=== PATIENT | female | born 1945 | race Caucasian/White ===

== ENCOUNTER 2016-10-24 17:08 | Inpatient (IN) | payer MEDICARE, OTHER ==
[~2016-10-24] VITALS: Ht 172.7 cm; Wt 66.8 kg
[~2016-10-24 17:08] MED LIST: ALEN35TA18 PO; OMEP20CA5 PO
[2016-10-24] MEDS ORDERED: SODIUM CHLORIDE 0.9% 250 ML IV ONE (17:22)
[2016-10-24] MEDS ORDERED: cefTRIAXone 1GM/50ML D5W 50 ML IV ONE (17:30)
[2016-10-24] MEDS ORDERED: SODIUM CHLORIDE 0.9% 1,000 ML IV ONE (17:30)
[2016-10-24] MEDS ORDERED: NITROGLYCERIN 0.4 MG SL TAB SL PRN (17:30)
[2016-10-24] MEDS ORDERED: MORPHINE SULF INJ 2 MG/ML SYRINGE 1ML IV PRN (17:30)
[2016-10-24] MEDS ORDERED: ONDANSETRON HCL 4 MG/2 ML VIAL IV PRN (17:45)
[2016-10-24] MEDS ORDERED: AZITHROMYCIN 500MG/D5W 250ML 250 ML IV ONE (17:45)
[2016-10-24] MEDS ORDERED: ALPRAZolam 0.5 MG TAB PO PRN (17:45)
[2016-10-24] MEDS ORDERED: CITALOPRAM HYDROBR 20 MG TAB PO ONE (18:00)
[2016-10-24] MEDS ORDERED: PANTOPRAZOLE 40 MG TAB PO ONE (18:00)
[2016-10-24 18:28] LABS: Basophils # (auto) 0 uL; Basophils % (auto) 0.1 % (0.0-2.0); Eosinophils # (auto) 0 uL; Lymphocytes # (auto) 0.7 uL; Lymphocytes % (auto) 4.5 % (10.0-50.0); Mean Corpuscular Hemoglobin 31.2 pg (28.0-32.0); Mean Corpuscular Hgb Conc. 34.2 g/dL (32.0-36.0); Mean Corpuscular Volume 91.1 fL (80.0-100.0); Mean Platelet Volume 8.3 fL (7.4-10.4); Monocytes % (auto) 6.1 % (0.0-12.0); Neutrophils % (auto) 89.3 % (37.0-80.0); Platelet Count (auto) 389 10^3/uL (140-450); Red Cell Distribution Width 15.1 % (11.6-16.0); White Blood Cell 15.7 10^3/uL (4.4-10.8)
[2016-10-24 18:39] LABS: INR 1.09 (0.9-1.15); Partial Thromboplastin Time 30.7 sec (22.64-33.71); Prothrombin Time 11.2 sec (9.37-12.3)
[2016-10-24 18:40] LABS: Albumin 3.1 g/dL (3.4-5.0); Alkaline Phosphatase 123 U/L (45-117); Anion Gap 14 (5-15); Aspartate Aminotransferase 15 U/L (15-37); BUN/Creatinine Ratio 16.7; Bilirubin, Total 1.6 mg/dL (0.2-1.0); Blood Urea Nitrogen 14 mg/dL (7-18); Calcium 7.9 mg/dL (8.5-10.1); Carbon Dioxide 23 mmol/L (21-32); Chloride 96 mmol/L (98-107); GFR African American 86 mL/min; GFR Non-African American 71 mL/min; Glucose 120 mg/dL (74-106); Potassium 3.8 mmol/L (3.5-5.1); Sodium 133 mmol/L (136-145); Total Protein 6.7 g/dL (6.4-8.2)
[2016-10-24 18:43] LABS: B-Type Natriuretic Peptide 91.79 pg/mL (0-100)
[2016-10-24 18:52] LABS: Temperature: 22.7 C (20.0-25.0)
[2016-10-24 20:00] VITALS: BP 121/60
[2016-10-24] MEDS ORDERED: OMEP20CA5 PO (21:05)
[2016-10-24 22:00] VITALS: BP 121/60
[2016-10-24] MEDS ORDERED: CITA-73 PO (22:02)
[2016-10-24] MEDS ORDERED: MECL12.554 PO (22:02)
[2016-10-24] MEDS: ACETAMINOPHEN 325 MG TAB PO PRN (22:46)
[2016-10-25] VITALS (7 sets, daily range): BP systolic 95–118; BP diastolic 43–64
[2016-10-25 06:05] LABS: Basophils # (auto) 0.1 uL; Basophils % (auto) 0.6 % (0.0-2.0); Eosinophils # (auto) 0 uL; Eosinophils % (auto) 0.1 % (0.0-7.0); Hematocrit 36.6 % (36.0-46.0); Hemoglobin 12.1 g/dL (12.2-16.2); Lymphocytes # (auto) 1.2 uL; Lymphocytes % (auto) 7.7 % (10.0-50.0); Mean Corpuscular Hemoglobin 30.7 pg (28.0-32.0); Mean Corpuscular Volume 92.9 fL (80.0-100.0); Mean Platelet Volume 8.4 fL (7.4-10.4); Monocytes # (auto) 0.9 uL; Monocytes % (auto) 5.4 % (0.0-12.0); Neutrophils # (auto) 13.7 uL; Neutrophils % (auto) 86.2 % (37.0-80.0); Platelet Count (auto) 359 10^3/uL (140-450); Red Cell Distribution Width 15.1 % (11.6-16.0); White Blood Cell 15.9 10^3/uL (4.4-10.8)
[2016-10-25 06:11] LABS: Urine Bilirubin Negative (Negative); Urine Color Yellow (Yellow); Urine Glucose Normal (Normal); Urine Ketone Negative (Negative); Urine Nitrite Negative (Negative); Urine RBC 2 /hpf (0 - 4); Urine Urobilinogen Normal (Negative)
[2016-10-25 06:13] LABS: Urine Blood 1+ /uL (Negative)
[2016-10-25 06:24] LABS: Albumin 2.8 g/dL (3.4-5.0); BUN/Creatinine Ratio 12.3; Bilirubin, Total 1.1 mg/dL (0.2-1.0); Calcium 7.9 mg/dL (8.5-10.1); Total Protein 6.5 g/dL (6.4-8.2)
[2016-10-25] MEDS: AZITHROMYCIN 500MG/D5W 250ML 250 ML IV SCH ×2 (10:00→10:35)
[2016-10-25] MEDS: PANTOPRAZOLE 40 MG TAB PO SCH (10:30)
[2016-10-25] MEDS: CITALOPRAM HYDROBR 20 MG TAB PO SCH (10:30)
[2016-10-25] MEDS: cefTRIAXone 1GM/50ML D5W 50 ML IV SCH (11:46)
[2016-10-25] MEDS: ACETAMINOPHEN 325 MG TAB PO PRN (17:59)
[2016-10-26 04:52] VITALS: BP 115/61
[2016-10-26 06:36] LABS: Basophils # (auto) 0 uL; Eosinophils # (auto) 0 uL; Eosinophils % (auto) 0.3 % (0.0-7.0); Hematocrit 31.7 % (36.0-46.0); Hemoglobin 10.6 g/dL (12.2-16.2); Lymphocytes % (auto) 10.2 % (10.0-50.0); Mean Corpuscular Hemoglobin 30.9 pg (28.0-32.0); Mean Corpuscular Hgb Conc. 33.4 g/dL (32.0-36.0); Mean Corpuscular Volume 92.4 fL (80.0-100.0); Mean Platelet Volume 8.6 fL (7.4-10.4); Monocytes # (auto) 0.9 uL; Monocytes % (auto) 9.1 % (0.0-12.0); Neutrophils # (auto) 7.8 uL; Neutrophils % (auto) 80.4 % (37.0-80.0); Platelet Count (auto) 343 10^3/uL (140-450); White Blood Cell 9.7 10^3/uL (4.4-10.8)
[2016-10-26 06:45] LABS: Albumin 2.5 g/dL (3.4-5.0); BUN/Creatinine Ratio 11.8; Bilirubin, Total 0.9 mg/dL (0.2-1.0); Calcium 7.6 mg/dL (8.5-10.1); Potassium 3.6 mmol/L (3.5-5.1); Total Protein 5.9 g/dL (6.4-8.2)
[2016-10-26 09:00] VITALS: BP 129/66
[2016-10-26] MEDS: cefTRIAXone 1GM/50ML D5W 50 ML IV SCH (09:50)
[2016-10-26] MEDS: CITALOPRAM HYDROBR 20 MG TAB PO SCH (09:51)
[2016-10-26] MEDS: PANTOPRAZOLE 40 MG TAB PO SCH (09:51)
[2016-10-26] MEDS ORDERED: VANCOMYCIN PER PHARMACY 0 MG IV SCH (11:30)
[2016-10-26 13:00] VITALS: BP 108/64
[2016-10-26] MEDS: VANCOMYCIN 1GM/250ML D5W 250 ML IV SCH (13:00)
[2016-10-26 16:41] VITALS: BP 125/65
[2016-10-26 21:41] VITALS: BP 117/52
[2016-10-27] MEDS: VANCOMYCIN 1GM/250ML D5W 250 ML IV SCH ×2 (00:40→13:00)
[2016-10-27 05:08] VITALS: BP 118/61
[2016-10-27 05:48] LABS: Basophils # (auto) 0 uL; Basophils % (auto) 0.3 % (0.0-2.0); Eosinophils # (auto) 0.1 uL; Eosinophils % (auto) 1.2 % (0.0-7.0); Hematocrit 30.2 % (36.0-46.0); Hemoglobin 10.3 g/dL (12.2-16.2); Lymphocytes # (auto) 1.2 uL; Lymphocytes % (auto) 15.9 % (10.0-50.0); Mean Corpuscular Hemoglobin 31.2 pg (28.0-32.0); Mean Corpuscular Hgb Conc. 34.1 g/dL (32.0-36.0); Mean Corpuscular Volume 91.6 fL (80.0-100.0); Mean Platelet Volume 8.4 fL (7.4-10.4); Monocytes # (auto) 0.8 uL; Monocytes % (auto) 10.1 % (0.0-12.0); Neutrophils # (auto) 5.4 uL; Neutrophils % (auto) 72.5 % (37.0-80.0); Platelet Count (auto) 354 10^3/uL (140-450); Red Cell Distribution Width 14.8 % (11.6-16.0); White Blood Cell 7.4 10^3/uL (4.4-10.8)
[2016-10-27 05:58] LABS: Albumin 2.5 g/dL (3.4-5.0); BUN/Creatinine Ratio 17.1; Bilirubin, Total 0.5 mg/dL (0.2-1.0); Calcium 7.5 mg/dL (8.5-10.1); Potassium 3.3 mmol/L (3.5-5.1); Total Protein 5.7 g/dL (6.4-8.2)
[2016-10-27] MEDS: PANTOPRAZOLE 40 MG TAB PO SCH (08:45)
[2016-10-27] MEDS: cefTRIAXone 1GM/50ML D5W 50 ML IV SCH (08:45)
[2016-10-27] MEDS: CITALOPRAM HYDROBR 20 MG TAB PO SCH (08:45)
[2016-10-27 09:00] VITALS: BP 120/70
[2016-10-27] MEDS ORDERED: POTASSIUM CHLORIDE 20 MEQ, LIDOCAINE 1% (LOCAL ANESTH.) 2 ML in SODIUM CHL 0.9% 100 ML IV ONE (11:00)
[2016-10-27 13:00] VITALS: BP 118/73
[2016-10-27] MEDS ORDERED: AMMONIA 0.33 ML INHALANT IN ONE (15:42)
[2016-10-27 17:00] VITALS: BP 118/65
[2016-10-27 22:00] VITALS: BP 144/75
[2016-10-28 05:00] VITALS: BP 116/55
[2016-10-28 07:52] LABS: Albumin 2.4 g/dL (3.4-5.0); BUN/Creatinine Ratio 10.8; Bilirubin, Total 0.5 mg/dL (0.2-1.0); Calcium 7.8 mg/dL (8.5-10.1); Potassium 3.3 mmol/L (3.5-5.1); Total Protein 5.9 g/dL (6.4-8.2)
[2016-10-28 09:00] VITALS: BP 130/58
[2016-10-28] MEDS: CITALOPRAM HYDROBR 20 MG TAB PO SCH (09:36)
[2016-10-28] MEDS: cefTRIAXone 1GM/50ML D5W 50 ML IV SCH (09:37)
[2016-10-28] MEDS: PANTOPRAZOLE 40 MG TAB PO SCH (09:37)
[2016-10-28] MEDS ORDERED: POTASSIUM CHL 20 Meq TABLET PO SCH (10:00)
[2016-10-28] MEDS ORDERED: POTASSIUM CHLORIDE 40 MEQ, LIDOCAINE 1% (LOCAL ANESTH.) 4 ML in SODIUM CHL 0.9% 250 ML IV ONE (11:45)
[2016-10-28] MEDS ORDERED: POTASSIUM CHL 20 Meq TABLET PO ONE (11:45)
[2016-10-28 13:00] VITALS: BP 125/67
[2016-10-28 16:34] LABS: Temperature: 23.3 C (20.0-25.0)
[2016-10-28 17:00] VITALS: BP 129/61
== END 2016-10-28 17:39 | disposition home or self-care (01) | DRG 871 ==
LOC: ER 17:23 → TELE 17:24 → TELE-WESTW 20:04
PROVIDERS: ADMIT Internal Medicine; ATTEND Internal Medicine
DX: A41.51 Sepsis due to Escherichia coli [E. coli] (principal); E43 Unspecified severe protein-calorie malnutrition; N39.0 Urinary tract infection, site not specified; E86.0 Dehydration; K21.9 Gastro-esophageal reflux disease without esophagitis; M81.0 Age-related osteoporosis without current pathological fracture; Z96.649 Presence of unspecified artificial hip joint; F32.9 Major depressive disorder, single episode, unspecified; F41.9 Anxiety disorder, unspecified; Z96.642 Presence of left artificial hip joint; E87.6 Hypokalemia; R41.3 Other amnesia; Z68.22 Body mass index [BMI] 22.0-22.9, adult; Z91.81 History of falling; Z85.3 Personal history of malignant neoplasm of breast
CPT/HCPCS: 36415; 70450; 71010; 80053; 81001; 82607; 82746; 83605; 83880; 84439; 84443; 84484; 85025; 85610; 85730; 87040; 87077; 87086; 87088; 87186; 93005; 96374; 96375; J0696; J2001; J2405

== ENCOUNTER 2017-01-06 14:12 | Inpatient (IN) | payer MEDICARE ==
[~2017-01-06] VITALS: Ht 157.5 cm; Wt 65.9 kg
[~2017-01-06 14:12] MED LIST changes: +CITA-73 PO; +MECL12.554 PO; -OMEP20CA5 PO; +OMEP20CA74 PO
[2017-01-06] MEDS ORDERED: SODIUM CHLORIDE 0.9% 1,000 ML IV ONE (15:15)
[2017-01-06] MEDS ORDERED: MORPHINE SULFATE 4 MG/ML SYRG ONE (15:45)
[2017-01-06] MEDS ORDERED: METHOCARBAMOL 500 MG TAB PO ONE (16:00)
[2017-01-06] MEDS ORDERED: MORPHINE SULFATE 4 MG/ML SYRG IV ONE (16:00)
[2017-01-06] MEDS ORDERED: ONDANSETRON HCL 4 MG/2 ML VIAL IV ONE (16:00)
[2017-01-06 16:22] LABS: Basophils # (auto) 0 uL; Basophils % (auto) 0.6 % (0.0-2.0); Eosinophils # (auto) 0 uL; Eosinophils % (auto) 0.3 % (0.0-7.0); Hematocrit 38.3 % (36.0-46.0); Hemoglobin 12.8 g/dL (12.2-16.2); Lymphocytes # (auto) 1.2 uL; Lymphocytes % (auto) 14.3 % (10.0-50.0); Mean Corpuscular Hemoglobin 31.3 pg (28.0-32.0); Mean Corpuscular Hgb Conc. 33.4 g/dL (32.0-36.0); Mean Corpuscular Volume 93.6 fL (80.0-100.0); Mean Platelet Volume 8.6 fL (7.4-10.4); Monocytes # (auto) 0.3 uL; Monocytes % (auto) 4.1 % (0.0-12.0); Neutrophils # (auto) 6.6 uL; Neutrophils % (auto) 80.7 % (37.0-80.0); Platelet Count (auto) 386 10^3/uL (140-450); Red Cell Distribution Width 15.9 % (11.6-16.0); White Blood Cell 8.1 10^3/uL (4.4-10.8)
[2017-01-06 16:34] LABS: Albumin 3.4 g/dL (3.4-5.0); BUN/Creatinine Ratio 14.1; Calcium 8.6 mg/dL (8.5-10.1); Potassium 4.5 mmol/L (3.5-5.1)
[2017-01-06 16:36] LABS: Bilirubin, Total 0.5 mg/dL (0.2-1.0); Total Protein 6.8 g/dL (6.4-8.2)
[2017-01-06 16:47] LABS: INR 0.92 (0.9-1.15); Partial Thromboplastin Time 25.1 sec (22.64-33.71)
[2017-01-06 16:57] LABS: Urine RBC None Seen /hpf (0 - 4)
[2017-01-06] MEDS ORDERED: KETOROLAC TROMETH 30 MG/ML 1ML VIAL IV ONE (17:30)
[2017-01-06] MEDS ORDERED: LORazepam 2MG/ML-1ML VIAL IV ONE (17:30)
[2017-01-06 17:48] LABS: Urine Bilirubin Negative (Negative); Urine Blood Negative /uL (Negative); Urine Color Yellow (Yellow); Urine Glucose Normal (Normal); Urine Ketone Negative (Negative); Urine Nitrite Negative (Negative); Urine Urobilinogen Normal (Negative)
[2017-01-06] MEDS: MORPHINE SULF INJ 2 MG/ML SYRINGE 1ML IV PRN (19:43)
[2017-01-06] MEDS: ONDANSETRON HCL 4 MG/2 ML VIAL IV PRN (19:44)
[2017-01-06 21:20] VITALS: BP 129/67
[2017-01-06] MEDS: BACLOFEN 10 MG TAB PO SCH (21:42)
[2017-01-06 22:00] VITALS: BP 116/71
[2017-01-06] MEDS ORDERED: PANT40TA2 PO (23:49)
[2017-01-07 05:00] VITALS: BP 130/72
[2017-01-07] MEDS: MORPHINE SULF INJ 2 MG/ML SYRINGE 1ML IV PRN ×4 (07:07→17:31)
[2017-01-07] MEDS: ONDANSETRON HCL 4 MG/2 ML VIAL IV PRN (07:07)
[2017-01-07 08:00] VITALS: BP 130/62
[2017-01-07] MEDS: BACLOFEN 10 MG TAB PO SCH ×2 (09:34→21:30)
[2017-01-07] MEDS: CITALOPRAM HYDROBR 20 MG TAB PO SCH (09:34)
[2017-01-07] MEDS: PANTOPRAZOLE 40 MG TAB PO SCH (09:34)
[2017-01-07] MEDS: LIDOCAINE 5% TOPICAL PATCH TOP SCH (09:35)
[2017-01-07 12:00] VITALS: BP 107/47
[2017-01-07 16:27] LABS: Hematocrit 31.3 % (36.0-46.0); Hemoglobin 10.6 g/dL (12.2-16.2)
[2017-01-07 17:00] VITALS: BP 134/70
[2017-01-07 22:00] VITALS: BP 130/75
[2017-01-08] VITALS (7 sets, daily range): BP systolic 102–148; BP diastolic 56–87
[2017-01-08] MEDS: MORPHINE SULF INJ 2 MG/ML SYRINGE 1ML IV PRN ×3 (00:50→14:53)
[2017-01-08] MEDS: ONDANSETRON HCL 4 MG/2 ML VIAL IV PRN ×3 (00:50→22:26)
[2017-01-08 05:43] LABS: Basophils # (auto) 0 uL; Basophils % (auto) 0.4 % (0.0-2.0); Eosinophils # (auto) 0.1 uL; Eosinophils % (auto) 0.9 % (0.0-7.0); Hematocrit 32.2 % (36.0-46.0); Lymphocytes # (auto) 1.8 uL; Lymphocytes % (auto) 26.2 % (10.0-50.0); Mean Corpuscular Hgb Conc. 34.2 g/dL (32.0-36.0); Mean Corpuscular Volume 93.4 fL (80.0-100.0); Mean Platelet Volume 8.5 fL (7.4-10.4); Monocytes # (auto) 0.7 uL; Monocytes % (auto) 9.6 % (0.0-12.0); Neutrophils # (auto) 4.3 uL; Neutrophils % (auto) 62.9 % (37.0-80.0); Platelet Count (auto) 318 10^3/uL (140-450); Red Cell Distribution Width 15.4 % (11.6-16.0); White Blood Cell 6.9 10^3/uL (4.4-10.8)
[2017-01-08 06:04] LABS: Albumin 2.8 g/dL (3.4-5.0); Calcium 7.5 mg/dL (8.5-10.1); Potassium 3.9 mmol/L (3.5-5.1)
[2017-01-08 06:06] LABS: BUN/Creatinine Ratio 15.4
[2017-01-08 06:25] LABS: Bilirubin, Total 0.8 mg/dL (0.2-1.0)
[2017-01-08] MEDS ORDERED: ALENDRONATE SODIUM 10 MG TAB PO SCH (06:30)
[2017-01-08] MEDS: PANTOPRAZOLE 40 MG TAB PO SCH (10:46)
[2017-01-08] MEDS: CITALOPRAM HYDROBR 20 MG TAB PO SCH (10:46)
[2017-01-08] MEDS: LIDOCAINE 5% TOPICAL PATCH TOP SCH (10:47)
[2017-01-08] MEDS: BACLOFEN 10 MG TAB PO SCH ×2 (10:47→22:25)
[2017-01-08] MEDS: HYDROmorphone HCL 2 MG/ML VL IV PRN ×2 (15:37→22:26)
[2017-01-09] MEDS: HYDROmorphone HCL 2 MG/ML VL IV PRN ×3 (04:26→19:12)
[2017-01-09] MEDS: ONDANSETRON HCL 4 MG/2 ML VIAL IV PRN (04:26)
[2017-01-09 05:00] VITALS: BP 136/66
[2017-01-09 08:00] VITALS: BP 112/61
[2017-01-09 09:00] VITALS: BP 112/61
[2017-01-09] MEDS ORDERED: ENOXAPARIN SOD 60 MG/0.6 ML SYRINGE SC SCH (10:00)
[2017-01-09] MEDS: PANTOPRAZOLE 40 MG TAB PO SCH (11:01)
[2017-01-09] MEDS: BACLOFEN 10 MG TAB PO SCH (11:01)
[2017-01-09] MEDS: CITALOPRAM HYDROBR 20 MG TAB PO SCH (11:01)
[2017-01-09] MEDS: LIDOCAINE 5% TOPICAL PATCH TOP SCH (11:02)
[2017-01-09 13:00] VITALS: BP 146/77
[2017-01-09 17:00] VITALS: BP 159/69
[2017-01-09 17:40] VITALS: BP 159/69
[2017-01-12] MEDS ORDERED: ALENDRONATE SODIUM 10 MG TAB PO SCH (06:45)
== END 2017-01-09 19:30 | disposition short-term general hospital (02) | DRG 560 ==
LOC: EDBD 14:12 → ER 14:12 → OVERFLOW 14:13 → CENTRAL 21:06
PROVIDERS: ADMIT Internal Medicine; ATTEND Internal Medicine
DX: M97.01XA Periprosthetic fracture around internal prosthetic right hip joint, initial encounter (principal); I31.3 Pericardial effusion (noninflammatory); J98.11 Atelectasis; F32.9 Major depressive disorder, single episode, unspecified; K21.9 Gastro-esophageal reflux disease without esophagitis; M81.0 Age-related osteoporosis without current pathological fracture; Z96.643 Presence of artificial hip joint, bilateral; K42.9 Umbilical hernia without obstruction or gangrene; K44.9 Diaphragmatic hernia without obstruction or gangrene; K59.00 Constipation, unspecified; K80.20 Calculus of gallbladder without cholecystitis without obstruction; Z90.12 Acquired absence of left breast and nipple
CPT/HCPCS: 36415; 51702; 73502; 74176; 80053; 81001; 85014; 85018; 85025; 85610; 85730; 96361; 96374; 96375; 99291; J1885; J2405

== ENCOUNTER 2017-11-13 16:02 | Emergency (ER) | payer MEDICARE ==
[~2017-11-13] VITALS: Ht 172.7 cm; Wt 63.5 kg
[~2017-11-13 16:02] MED LIST changes: -MECL12.554 PO; -OMEP20CA74 PO; +PANT40TA2 PO
[2017-11-13 16:31] VITALS: BP 144/64
[2017-11-13] MEDS ORDERED: traMADol HCL 50 MG TAB PO ONE (17:30)
== END 2017-11-13 17:53 | disposition home or self-care (01) ==
LOC: ER 16:08
DX: S52.502A Unspecified fracture of the lower end of left radius, initial encounter for closed fracture (principal); K21.9 Gastro-esophageal reflux disease without esophagitis; W01.0XXA Fall on same level from slipping, tripping and stumbling without subsequent striking against object, initial encounter; Y93.89 Activity, other specified; Y92.89 Other specified places as the place of occurrence of the external cause; Y99.8 Other external cause status
CPT/HCPCS: 29125